=== PATIENT | male | born 1980 | race Caucasian/White ===

== ENCOUNTER 2017-01-18 21:22 | Emergency (ER) | payer OTHER ==
[~2017-01-18] VITALS: Ht 165.1 cm; Wt 65.0 kg
[2017-01-18 21:36] VITALS: BP 154/90; PULSE 92; RESP 16; TEMP 98.4; O2SAT 98
--- NOTE | 2017-01-18 21:59 | PD ---
HPI Chief Complaint: Psychiatric Symptoms Time Seen by Provider: 21:59 Travel History International Travel<30 days: No Contact w/Intl Traveler<30days: No Traveled to known affect area: No History of Present Illness HPI 37-year-old male presents to the emergency department under Mo[place] act for psychiatric evaluation. [facility] where he states that he informed them he had drank bleach today and taken a Tylenol PM. Patient states his is an active attempted suicide. He states that 2 nights ago he took about 20 Tylenol PM and attempted suicide. Patient states that he has no reason to live and he is actively suicidal. He denies any nausea or vomiting. No focal deficits weakness. No cough or chest congestion. No recent illnesses, fever, or chills. No other symptoms to report at this time. PFSH Past Medical History Anxiety: Yes Depression: Yes Medical other: Yes (heart murmur ) Tetanus Vaccination: > 5 Years Past Surgical History Surgical History: No Previous Surgery Social History Alcohol Use: Yes Tobacco Use: Yes Substance Use: Yes (mj, cocaine, heroin, crack, crystal meth ) Allergies-Medications (Allergen,Severity, Reaction): Coded Allergies: No Known Allergies (Unverified , 01/18/17) Reported Meds & Prescriptions Reported Meds & Active Scripts Active No Active Prescriptions or Reported Medications Review of Systems Except as stated in HPI: all other systems reviewed are Neg Physical Exam Narrative GENERAL: Well-nourished, well-developed male patient, ambulatory and in no acute distress SKIN: Focused skin assessment warm/dry. HEAD: Normocephalic. EYES: No scleral icterus. No injection or drainage. NECK: Supple, trachea midline. No JVD or lymphadenopathy. CARDIOVASCULAR: Regular rate and rhythm without murmurs, gallops, or rubs. RESPIRATORY: Breath sounds equal bilaterally. No accessory muscle use. GASTROINTESTINAL: Abdomen soft, non-tender, nondistended. MUSCULOSKELETAL: No cyanosis, or edema. BACK: Nontender without obvious deformity. No CVA tenderness. PSYCHIATRIC: Depressed affect. No hallucinations. Data Data Last Documented VS Vital Signs Date Time Temp Pulse Resp B/P Pulse Ox O2 Delivery O2 Flow Rate FiO2 01/19/17 02:05 91 18 122/68 01/18/17 21:36 98.4 98 Orders Complete Blood Count With Diff (01/18/17 21:57) Comprehensive Metabolic Panel (01/18/17 21:57) Urinalysis - C+S If Indicated (01/18/17 21:57) Electrocardiogram (01/18/17 21:57) Psych Screen (01/18/17 21:57) Drug Screen, Random Urine (01/18/17 21:57) Alcohol (Ethanol) (01/18/17 21:57) Salicylates (Aspirin) (01/18/17 21:57) Tylenol (Acetaminophen) (01/18/17 21:57) Diet Regular Basic (01/19/17 Breakfast) Labs Laboratory Tests Test 01/18/17 01/18/17 22:15 23:30 White Blood Count 7.2 TH/MM3 Red Blood Count 5.09 MIL/MM3 Hemoglobin 16.4 GM/DL Hematocrit 48.0 % Mean Corpuscular Volume 94.4 FL Mean Corpuscular Hemoglobin 32.2 PG Mean Corpuscular Hemoglobin 34.1 % Concent Red Cell Distribution Width 12.4 % Platelet Count 147 TH/MM3 Mean Platelet Volume 8.4 FL Neutrophils (%) (Auto) 51.6 % Lymphocytes (%) (Auto) 36.1 % Monocytes (%) (Auto) 8.5 % Eosinophils (%) (Auto) 2.9 % Basophils (%) (Auto) 0.9 % Neutrophils # (Auto) 3.7 TH/MM3 Lymphocytes # (Auto) 2.6 TH/MM3 Monocytes # (Auto) 0.6 TH/MM3 Eosinophils # (Auto) 0.2 TH/MM3 Basophils # (Auto) 0.1 TH/MM3 CBC Comment DIFF FINAL Differential Comment Sodium Level 141 MEQ/L Potassium Level 3.9 MEQ/L Chloride Level 105 MEQ/L Carbon Dioxide Level 29.5 MEQ/L Anion Gap 7 MEQ/L Blood Urea Nitrogen 5 MG/DL Creatinine 0.85 MG/DL Estimat Glomerular Filtration 101 ML/MIN Rate Random Glucose 83 MG/DL Calcium Level 8.8 MG/DL Total Bilirubin 0.4 MG/DL Aspartate Amino Transf 37 U/L (AST/SGOT) Alanine Aminotransferase 26 U/L (ALT/SGPT) Alkaline Phosphatase 92 U/L Total Protein 7.4 GM/DL Albumin 3.8 GM/DL Salicylates Level 5.0 MG/DL Acetaminophen Level LESS THAN 2.0 MCG/ML Ethyl Alcohol Level 176 MG/DL Urine Color YELLOW Urine Turbidity CLEAR Urine pH 5.5 Urine Specific [place] 1.026 Urine Protein TRACE mg/dL Urine Glucose (UA) NEG mg/dL Urine Ketones NEG mg/dL Urine Occult Blood NEG Urine Nitrite NEG Urine Bilirubin NEG Urine Urobilinogen LESS THAN 2.0 MG/DL Urine Leukocyte Esterase NEG Urine RBC LESS THAN 1 /hpf Urine WBC 3 /hpf Urine Hyaline Casts 4 /lpf Urine Granular Casts 5 /lpf Urine Mucus FEW /lpf Microscopic Urinalysis Comment CULT NOT INDICATED Urine Opiates Screen NEG Urine Barbiturates Screen NEG Urine Amphetamines Screen NEG Urine Benzodiazepines Screen NEG Urine Cocaine Screen NEG Urine Cannabinoids Screen NEG MDM Medical Decision Making Medical Screen Exam Complete: Yes Emergency Medical Condition: Yes Medical Record Reviewed: Yes Differential Diagnosis Mood disorder versus personality disorder versus adjustment reaction disorder versus substance abuse Narrative Course 37-year-old male presents to emergency department under [place] act for psychiatric evaluation. Patient appears without distress. Poison control has been contacted by nursing staff regarding the patient drinking bleach. EKG and lab work is ordered in accordance to the recommendation. CBC and CMP are without acute concern. Toxicology is negative. Salicylates is 5.0. Abrasion Tylenol within normal limits. EtOH is 176. Patient is medically cleared to undergo psychiatric screening for further evaluation and disposition. Mental health screening discussed with the patient. Psychiatric screen ordered. Diagnosis Primary Impression: Suicidal intent Additional Impressions: Suicidal thoughts Alcohol intoxication Qualified Code: F10.929 - Alcohol intoxication, with unspecified complication Scripts No Active Prescriptions or Reported Meds Condition: Marielos Scott January 18, 2017 21:59
[2017-01-18 22:28] LABS: AUTOMATED NEUTROPHIL # 3.7 TH/MM3 (1.8-7.7); BASOPHIL # 0.1 TH/MM3 (0-0.2); BASOPHIL % 0.9 % (0.0-2.0); EOSINOPHIL # 0.2 TH/MM3 (0-0.4); EOSINOPHIL % 2.9 % (0.0-4.0); HEMO FLAGS DIFF FINAL; LYMPH % 36.1 % (9.0-44.0); LYMPHOCYTE # 2.6 TH/MM3 (1.0-4.8); MEAN CELL VOLUME 94.4 FL (80.0-100.0); MEAN CORPUSCULAR HEMOGLOBIN 32.2 PG (27.0-34.0); MEAN CORPUSCULAR HGB CONC 34.1 % (32.0-36.0); MONO % 8.5 % (0.0-8.0); NEUT % 51.6 % (16.0-70.0); PLATELET COUNT 147 TH/MM3 (150-450); RED BLOOD COUNT 5.09 MIL/MM3 (4.50-5.90); RED CELL DISTRIBUTION WIDTH 12.4 % (11.6-17.2); WHITE BLOOD COUNT 7.2 TH/MM3 (4.0-11.0)
[2017-01-18 22:58] LABS: ALT (GPT) 26 U/L (12-78); ANION GAP 7 MEQ/L (5-15); AST (GOT) 37 U/L (15-37); BICARBONATE 29.5 MEQ/L (21.0-32.0); BLOOD UREA NITROGEN 5 MG/DL (7-18); CHLORIDE 105 MEQ/L (98-107); GLOMERULAR FILTRATION RATE 101 ML/MIN (>89); POTASSIUM 3.9 MEQ/L (3.5-5.1); SODIUM (NA) 141 MEQ/L (136-145)
[2017-01-18 23:00] LABS: ACETAMINOPHEN LESS THAN 2.0 MCG/ML (10.0-30.0); ALKALINE PHOSPHATASE 92 U/L (45-117); TOTAL BILIRUBIN ADULT 0.4 MG/DL (0.2-1.0)
[2017-01-19 00:13] LABS: BLOOD, URINE NEG (NEG); COMMENT (UR) CULT NOT INDICATED; CULTURE IF INDICATED CULT NOT INDICATED; GLUCOSE,URINE NEG (NEG); GRANULAR CAST, URINE 5 /lpf; HYALINE CAST, URINE 4 /lpf (RARE); KETONE, URINE NEG (NEG); MUCUS URINE FEW /lpf (OCC); NITRITE,URINE NEG (NEG); PH, URINE 5.5 (5.0-8.5); URINE COLOR YELLOW (YELLW/STRAW)
[2017-01-19 00:14] LABS: AMPHETAMINE, URINE NEG (NEG); BARBITURATES, URINE NEG (NEG); COCAINE, URINE NEG (NEG)
[2017-01-19 02:05] VITALS: BP 122/68; PULSE 91; RESP 18
[2017-01-19 05:57] VITALS: BP 156/95; PULSE 84; RESP 18; O2SAT 98
--- NOTE | 2017-01-19 11:09 | PD ---
History of Present Illness Chief Complaint: Psychiatric Symptoms Time Seen by Provider: 10:45 Travel History International Travel<30 Days: No Contact w/Intl Traveler<30days: No Known affected area: No Legal Status Legal Status: Mooney Act Mo[place] Act Signed By: Ainsley Begum History of Present Illness: History of Present Illness HPI 37-year-old male with history of alcohol dependence who presents to the emergency department under Mooney act by JEANIE for psychiatric evaluation. As per the BA report the patient consumed bleach and an unknown pill and then left his house. He then called the police an informed them that he had done so. His found a note that he had left for her stating " I don't want to live anymore. It's not worth it". He also alleges that 2 days prior he had taken 20 Tylenol PM as an attempted suicide. His BAL on arrival to ED was 176 Patient was medically cleared in ed and then he was monitored in J pod. He did not present any behavioral concerns and no suicidality. he slept well. This morning he is alert,oriented, calm and cooperative. Speech is clear and logical, coherent. There is no hallucinations, no delusions and he denies any paranoia. The patient is clinically sober with no tremors and ambulating well. He states that he was living in [place] up until a week ago when he moved in with his ex as he had no other place to go. Most recently they have been arguing over his drinking. He states ' i was upset with her and that precipitated his suicide gesture. At this time he denies suicidal or homicidal ideation, intent or plan. He wants to begin to work on his sobriety. PFSH Past Medical History Anxiety: Yes Depression: Yes Medical other: Yes (heart murmur ) Tetanus Vaccination: > 5 Years Past Surgical History Surgical History: No Previous Surgery Psychiatric History Psychiatric History Hx Psychiatric Treatment: Has been treated x 1 for depression History of Inpatient Treatment: Yes ([facility] x3 days.) Guns or firearms in home: No Social History Divorce male who is living with his ex and their 2 children. works as a information systems security specialist. Hx Alcohol Use: Yes Hx Tobacco Use: Yes Hx Substance Use: Yes ( hx: mj, cocaine, heroin, crack, crystal meth, alcohol) Substance Use Type: Alcohol, Crack, Amphetamines-Stimulants, Heroin, Cocaine Hx of Substance Use Treatment: Yes ([facility] x 7 years. ) Family Psychiatric History None reported Allergies-Medications (Allergen,Severity, Reaction): Coded Allergies: No Known Allergies (Unverified , 01/18/17) Reported Meds & Prescriptions Reported Meds & Active Scripts Active No Active Prescriptions or Reported Medications Review of Systems Except as stated in HPI: all other systems reviewed are Neg Exam Alert: Yes [place]: Person (ox4) Mood: Calm Affect: Appropriate, Tearful Speech: Clear, Logical Eye Contact: Normal Memory Intact: Comment (no impairmetn) Hallucinations: Olfactory, Other (negative) Delusions: No Suicidal: Ideation (Negative) Homicidal: Ideation (Negative) Insight/Judgement poor. Not impaired. MDM Medical Decision Making Medical Record Reviewed: Yes Assessment/Plan 37 year old male with history of substance abuse who in context of alcohol intoxication as well as being involved in an argument with his ex allegedly took some bleach as well as took one unknown pill. Patient was monitored until he sobered up clinically and did not present any behavioral concerns or suicidality. At the time of this evaluation the patient denies suicidal ideation, intent or plan. he is talking about his sobriety and is future oriented with adequate protective factors. At this time the BA will be lifted. he will be discharged to follow up with AA as well as outpatient care. He has an appointmetn scheduled for January 30, 2017. Orders Complete Blood Count With Diff (01/18/17 21:57) Comprehensive Metabolic Panel (01/18/17 21:57) Urinalysis - C+S If Indicated (01/18/17 21:57) Electrocardiogram (01/18/17 21:57) Psych Screen (01/18/17 21:57) Drug Screen, Random Urine (01/18/17 21:57) Alcohol (Ethanol) (01/18/17 21:57) Salicylates (Aspirin) (01/18/17 21:57) Tylenol (Acetaminophen) (01/18/17 21:57) Diet Regular Basic (01/19/17 Breakfast) Results Vital Signs Date Time Temp Pulse Resp B/P Pulse Ox O2 Delivery O2 Flow Rate FiO2 01/19/17 05:57 84 18 156/95 98 Room Air 01/19/17 02:05 91 18 122/68 01/18/17 21:36 98.4 92 16 154/90 98 Laboratory Tests Test 01/18/17 01/18/17 22:15 23:30 White Blood Count 7.2 Red Blood Count 5.09 Hemoglobin 16.4 Hematocrit 48.0 Mean Corpuscular Volume 94.4 Mean Corpuscular Hemoglobin 32.2 Mean Corpuscular Hemoglobin 34.1 Concent Red Cell Distribution Width 12.4 Platelet Count 147 Mean Platelet Volume 8.4 Neutrophils (%) (Auto) 51.6 Lymphocytes (%) (Auto) 36.1 Monocytes (%) (Auto) 8.5 Eosinophils (%) (Auto) 2.9 Basophils (%) (Auto) 0.9 Neutrophils # (Auto) 3.7 Lymphocytes # (Auto) 2.6 Monocytes # (Auto) 0.6 Eosinophils # (Auto) 0.2 Basophils # (Auto) 0.1 CBC Comment DIFF FINAL Differential Comment Sodium Level 141 Potassium Level 3.9 Chloride Level 105 Carbon Dioxide Level 29.5 Anion Gap 7 Blood Urea Nitrogen 5 Creatinine 0.85 Estimat Glomerular Filtration 101 Rate Random Glucose 83 Calcium Level 8.8 Total Bilirubin 0.4 Aspartate Amino Transf 37 (AST/SGOT) Alanine Aminotransferase 26 (ALT/SGPT) Alkaline Phosphatase 92 Total Protein 7.4 Albumin 3.8 Salicylates Level 5.0 Acetaminophen Level LESS THAN 2.0 Ethyl Alcohol Level 176 Urine Color YELLOW Urine Turbidity CLEAR Urine pH 5.5 Urine Specific [place] 1.026 Urine Protein TRACE Urine Glucose (UA) NEG Urine Ketones NEG Urine Occult Blood NEG Urine Nitrite NEG Urine Bilirubin NEG Urine Urobilinogen LESS THAN 2.0 Urine Leukocyte Esterase NEG Urine RBC LESS THAN 1 Urine WBC 3 Urine Hyaline Casts 4 Urine Granular Casts 5 Urine Mucus FEW Microscopic Urinalysis Comment CULT NOT INDICATED Urine Opiates Screen NEG Urine Barbiturates Screen NEG Urine Amphetamines Screen NEG Urine Benzodiazepines Screen NEG Urine Cocaine Screen NEG Urine Cannabinoids Screen NEG Diagnosis Primary Impression: Alcohol intoxication Additional Impressions: Substance induced mood disorder Substance abuse Ruled Out: Suicidal intent, Suicidal thoughts Psychiatrically Cleared: Yes Med/ Other Pt Specific Info: No Meds Exist/No RX given Prescriptions No Active Prescriptions or Reported Meds Disposition: 01 DISCHARGE HOME Condition: Stable Problem Qualifiers Primary Impression: Alcohol intoxication Qualified Code: F10.929 - Alcohol intoxication, with unspecified complication Carmen Arizmendi January 19, 2017 11:09
--- NOTE | 2017-01-19 11:15 | EKG ---
Date Performed: 01/18/2017 Time Performed: 23:28:20 PTAGE: 37 years EKG: Sinus rhythm WITH SINUS ARRHYTHMIA NORMAL ECG NO PREVIOUS TRACING DOCTOR: Jose Broussard Interpretating Date/Time 01/19/2017 11:13:16
== END 2017-01-19 12:03 | disposition home or self-care (01) ==
LOC: NEPD 21:22 → NEPJ 01-19 12:03
DX: F41.8 Other specified anxiety disorders (principal); F19.94 Other psychoactive substance use, unspecified with psychoactive substance-induced mood disorder; F10.129 Alcohol abuse with intoxication, unspecified; R01.1 Cardiac murmur, unspecified; Z72.0 Tobacco use; F12.90 Cannabis use, unspecified, uncomplicated; F14.90 Cocaine use, unspecified, uncomplicated; F15.90 Other stimulant use, unspecified, uncomplicated; R45.851 Suicidal ideations; Y90.6 Blood alcohol level of 120-199 mg/100 ml; Z72.89 Other problems related to lifestyle
CPT/HCPCS: 80053; 80307; 81001; 85025; 93005; 99283

== ENCOUNTER 2017-09-18 00:25 | Inpatient (IN) | payer MEDICAID, OTHER ==
[~2017-09-18] VITALS: Ht 167.6 cm; Wt 69.9 kg
[2017-09-18 01:10] VITALS: BP 116/70; PULSE 82; RESP 18; TEMP 96.8; O2SAT 97
[2017-09-18] MEDS ORDERED: ALUMINUM/MAGNESIUM/SIMETH 30 ML CUP PO PRN (02:15)
[2017-09-18] MEDS ORDERED: BENZTROPINE MESYLATE 1 MG TAB PO PRN (02:15)
[2017-09-18] MEDS ORDERED: MAGNESIUM HYDROXIDE SUSP 30 ML CUP PO PRN (02:15)
[2017-09-18] MEDS ORDERED: BENZTROPINE MESYLATE 2 MG/2 ML VIAL IM PRN (02:15)
[2017-09-18] MEDS ORDERED: traZODone HCL 50 MG TAB PO PRN (02:15)
[2017-09-18] MEDS ORDERED: FLUMAZENIL 0.5 MG/5 ML VIAL IV PUSH PRN (03:00)
[2017-09-18] MEDS ORDERED: HALOPERIDOL LACTATE 5 MG/ML AMP IM PRN (03:00)
[2017-09-18] MEDS ORDERED: LORazepam 2 MG TAB PO PRN (03:00)
[2017-09-18] MEDS ORDERED: LORazepam 2 MG/ML VIAL IV PUSH PRN ×4 (03:00)
[2017-09-18] MEDS ORDERED: NICOTINE 21 MG/24 HR PATCH T-DERMAL SCH (09:00)
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
[2017-09-18] MEDS: FOLIC ACID 1 MG TAB PO SCH (10:50)
[2017-09-18] MEDS: THIAMINE HCL 100 MG TAB PO SCH (10:50)
[2017-09-18 12:59] LABS: BICARBONATE 29.3 MEQ/L (21.0-32.0); BLOOD UREA NITROGEN 15 MG/DL (7-18); CALCIUM 9.4 MG/DL (8.5-10.1); CHLORIDE 102 MEQ/L (98-107); CREATININE 0.95 MG/DL (0.60-1.30); GLOMERULAR FILTRATION RATE 89 ML/MIN (>89); GLUCOSE,RANDOM 168 MG/DL (74-106); SODIUM (NA) 137 MEQ/L (136-145)
[2017-09-18 13:01] LABS: CHOLESTEROL 172 MG/DL (120-200); TRIGLYCERIDES 158 MG/DL (42-150)
[2017-09-18 13:10] LABS: CHOLESTEROL/ HDL RATIO 2.12 RATIO; HDL CHOLESTEROL 80.9 MG/DL (40.0-60.0); LDL CHOLESTEROL 60 MG/DL (0-99)
[2017-09-18] MEDS: NICOTINE 21 MG/24 HR PATCH T-DERMAL PRN (16:05)
[2017-09-18] MEDS: LURASIDONE 40 MG TAB PO SCH (17:10)
[2017-09-18 17:32] LABS: HEMOGLOBIN A1C 5.2 % (4.3-6.0)
[2017-09-18 18:14] VITALS: BP 115/59; PULSE 77; RESP 18; TEMP 98.5; O2SAT 96
[2017-09-18] MEDS: REMOVE OLD NICOTINE PATCH T-DERMAL SCH (21:00)
[2017-09-18] MEDS: LITHIUM CARBONATE 300 MG CAP PO SCH (21:37)
[2017-09-18] MEDS: diphenhydrAMINE HCL 50 MG CAP - HS PRN PO (21:38)
[2017-09-18] MEDS: hydrOXYzine HCL 50 MG TAB PO PRN (22:41)
[2017-09-19 05:41] VITALS: BP 113/63; PULSE 79; RESP 16; TEMP 97.9; O2SAT 97
[2017-09-19 06:01] VITALS: BP 148/84; PULSE 125; RESP 16; TEMP 97.1; O2SAT 94
[2017-09-19] MEDS: FOLIC ACID 1 MG TAB PO SCH (08:12)
[2017-09-19] MEDS: LITHIUM CARBONATE 300 MG CAP PO SCH ×2 (08:12→21:34)
[2017-09-19] MEDS: THIAMINE HCL 100 MG TAB PO SCH (08:12)
[2017-09-19] MEDS: NICOTINE 21 MG/24 HR PATCH T-DERMAL PRN (11:48)
[2017-09-19] MEDS: hydrOXYzine HCL 50 MG TAB PO PRN ×2 (12:41→19:29)
[2017-09-19] MEDS: LORazepam 1 MG TAB PO PRN ×3 (12:56→22:01)
--- NOTE | 2017-09-19 14:43 | HHI.PYPN ---
Subjective Chief Complaint: Depression, suicide attempt Remarks Patient was seen and case discussed with nursing. Today patient is perseverant on the insomnia. Earlier today per nursing, was anxious, crying. During this interview he is hesitant with an irritable affect. Describes his mood today is "angry, down." Denies any suicidal homicidal ideation intent or plan. Mental Status Examination Appearance: Disheveled Consciousness: Alert Orientation: x4 Motor Activity: Normal gait Speech: Slow Language: Adequate Fund of Knowledge: Adequate Attention and Concentration: Adequate Memory: Unremarkable Mood: Angry Affect: Other (restricted and tearful) Thought Process & Associations: Intact, Linear Thought Content: Appropriate Hallucination Type: None Delusion Type: None Suicidal Ideation: No Suicidal Plan: No Suicidal Intention: No Homicidal Ideation: No Homicidal Plan: No Homicidal Intention: No Insight: Fair Judgment: Impulsive Results Vitals/IOs Vital Signs Date Time Temp Pulse Resp B/P (MAP) Pulse Ox O2 Delivery O2 Flow Rate FiO2 09/19/17 06:01 97.1 16 () 94 Assessment & Plan Problem List: (1) Severe depressed bipolar II disorder without psychotic features ICD Codes: F31.81 - Bipolar II disorder (2) Polysubstance abuse ICD Codes: F19.10 - Other psychoactive substance abuse, uncomplicated Assessment & Plan Start trazodone 50 mg by mouth daily at bedtime Justification for Cont. Inpt. Patient would decompensate in a less restrictive setting Request HC Surrog/Guard Advoc?: No Isauro Deleon DO Sep 19, 2017 14:43
[2017-09-19 16:18] VITALS: BP 118/63; PULSE 79; RESP 17; TEMP 97.8; O2SAT 99
[2017-09-19] MEDS: LURASIDONE 40 MG TAB PO SCH (17:19)
[2017-09-19] MEDS: REMOVE OLD NICOTINE PATCH T-DERMAL SCH (21:00)
[2017-09-19] MEDS: diphenhydrAMINE HCL 50 MG CAP - HS PRN PO (21:33)
[2017-09-19] MEDS: traZODone HCL 50 MG TAB PO SCH (21:34)
[2017-09-20 05:11] VITALS: BP 112/58; PULSE 60; RESP 16; TEMP 98; O2SAT 99
[2017-09-20] MEDS: THIAMINE HCL 100 MG TAB PO SCH (08:02)
[2017-09-20] MEDS: LITHIUM CARBONATE 300 MG CAP PO SCH ×2 (08:02→21:32)
[2017-09-20] MEDS: FOLIC ACID 1 MG TAB PO SCH (08:02)
[2017-09-20] MEDS: LORazepam 1 MG TAB PO PRN ×3 (08:02→19:58)
--- NOTE | 2017-09-20 13:09 | HHI.PYPN ---
Subjective Chief Complaint: Depression, suicide attempt Remarks Patient was seen and case discussed with nursing. Per nursing, CIWA is 8. There are mild tremors and anxiety. No nausea or vomiting or headache or confusion or hallucinations. Patient is largely seclusive to room. Is guarded and minimally engaged during the interview. Mood continues to be labile and he says he is "sad crying during the day thinking about his kids. He denies suicidal or homicidal ideation intent or plan. Compliant with medications Mental Status Examination Appearance: Disheveled Consciousness: Alert Orientation: x4 Motor Activity: Normal gait Speech: Slow Language: Adequate Fund of Knowledge: Adequate Attention and Concentration: Adequate Memory: Unremarkable Mood: Sad, Irritable Affect: Labile Thought Process & Associations: Intact, Linear Thought Content: Appropriate Hallucination Type: None Delusion Type: None Suicidal Ideation: No Suicidal Plan: No Suicidal Intention: No Homicidal Ideation: No Homicidal Plan: No Homicidal Intention: No Insight: Fair Judgment: Impulsive Results Vitals/IOs Vital Signs Date Time Temp Pulse Resp B/P (MAP) Pulse Ox O2 Delivery O2 Flow Rate FiO2 09/20/17 05:11 98.0 60 16 112/58 (76) 99 Assessment & Plan Problem List: (1) Severe depressed bipolar II disorder without psychotic features ICD Codes: F31.81 - Bipolar II disorder (2) Polysubstance abuse ICD Codes: F19.10 - Other psychoactive substance abuse, uncomplicated Assessment & Plan Continue current treatment plan Justification for Cont. Inpt. Patient will decompensate in a less restrictive setting Request HC Surrog/Guard Advoc?: No Isauro Deleon DO Sep 20, 2017 13:09
[2017-09-20] MEDS: NICOTINE 21 MG/24 HR PATCH T-DERMAL PRN (14:57)
[2017-09-20] MEDS: hydrOXYzine HCL 50 MG TAB PO PRN (14:57)
[2017-09-20 15:58] VITALS: BP 122/65; PULSE 86; RESP 18; TEMP 97.7; O2SAT 99
[2017-09-20] MEDS: LURASIDONE 40 MG TAB PO SCH (17:59)
[2017-09-20 18:53] VITALS: BP 144/77; PULSE 115; RESP 16; TEMP 98.5; O2SAT 97
[2017-09-20] MEDS: ACETAMINOPHEN 325 MG TAB PO PRN (19:01)
--- NOTE | 2017-09-20 20:39 | RADRPT ---
EXAM DATE/TIME: 09/20/2017 20:30 [place] COMPARISON: No previous studies available for comparison. INDICATIONS : Right hand pain post fall, Complains of bruising and swelling. MEDICAL HISTORY : None. SURGICAL HISTORY : None. ENCOUNTER: Initial ACUITY: 1 day PAIN SCORE: 9/10 LOCATION: Right upper extremity FINDINGS: Three view examination of the right hand demonstrates soft tissue swelling along the dorsum of the romero nd. Bony structures are intact without evidence of fracture or dislocation. There is no significant a rthropathy. The carpal bones appear intact. The interphalangeal and metacarpophalangeal joints are i ntact. Bony mineralization is normal. CONCLUSION: Soft tissue swelling without evidence of acute fracture, dislocation or significant arthropathy. Giovanni Henderson MD on September 20, 2017 at 20:36 Board Certified Radiologist. This report was verified electronically.
[2017-09-20] MEDS: REMOVE OLD NICOTINE PATCH T-DERMAL SCH (21:00)
[2017-09-20] MEDS: traZODone HCL 50 MG TAB PO SCH (21:32)
[2017-09-21 06:27] VITALS: BP 110/64; PULSE 65; RESP 16; TEMP 98; O2SAT 98
[2017-09-21] MEDS: THIAMINE HCL 100 MG TAB PO SCH (08:32)
[2017-09-21] MEDS: LITHIUM CARBONATE 300 MG CAP PO SCH ×2 (08:32→20:41)
[2017-09-21] MEDS: FOLIC ACID 1 MG TAB PO SCH (08:32)
[2017-09-21] MEDS: LORazepam 1 MG TAB PO PRN (12:21)
[2017-09-21] MEDS: ACETAMINOPHEN 325 MG TAB PO PRN (12:22)
--- NOTE | 2017-09-21 13:46 | HHI.PYPN ---
Subjective Chief Complaint: Depression, suicide attempt Remarks Patient seen and examined with nurse. Chart reviewed. Case discussed with nursing staff. Per nursing staff, the patient punched a wall over the weekend and try to pass this off as an unwitnessed fall. X-ray of the hand was negative for fracture. On my examination today, patient continues to display dysphoric affect. He reports ongoing low mood and high anxiety. He admits to ongoing intermittent suicidal ideation without specific plan. He endorses negative self talk. He admits that the injury to his right hand was the result of intentional nonsuicidal self injury by punching a wall; he did not fall. He complains of poor sleep. He says that he has done better with Seroquel in the past as this helped with sleep. We discussed discontinuing Latuda and initiating Seroquel at night and possibly adding additional doses during the day for management of anxiety. After discussion of the risks and benefits, the patient is agreeable to making this medication change. We also discuss transitioning the patient back to the higher acuity unit given the ongoing suicidal ideation and self injury over the weekend, and the patient agrees that this is not unreasonable, although he does not describe any active urge to suicide on the inpatient unit. Denies side effects from medications. Besides some lingering pain in the affected hand, no physical complaints. Patient has no signs or symptoms of GABAergic withdrawal presently and, when asked, admits that he was using the Ativan per LAYAWA when offered for management of his anxiety and not for withdrawal. Review of Systems Except as stated in HPI: all other systems reviewed are Neg Mental Status Examination Appearance: Appropriate Consciousness: Alert Orientation: x4 Motor Activity: Normal gait, Other (No motor abnormalities noted.) Speech: Slow Language: Adequate Fund of Knowledge: Adequate Attention and Concentration: Adequate Memory: Unremarkable Mood: Sad Affect: Other (tearful and dysphoric) Thought Process & Associations: Intact, Logical, Linear Thought Content: Appropriate Hallucination Type: None Delusion Type: None Suicidal Ideation: No Suicidal Plan: No Suicidal Intention: No Homicidal Ideation: No Homicidal Plan: No Homicidal Intention: No Insight: Fair Judgment: Impulsive Mental Status Exam Remarks Patient has erythema and swelling over the dorsum of his right hand. X-ray was negative for fracture. Results Labs Labs reviewed. No new labs. Last Impressions Hand X-Ray 09/20/17 0000 Signed Impressions: Service Date/Time: Wednesday, September 20, 2017 20:30 - CONCLUSION: Soft tissue swelling without evidence of acute fracture, dislocation or significant arthropathy. Giovanni Henderson MD Vitals/IOs Vital Signs Date Time Temp Pulse Resp B/P (MAP) Pulse Ox O2 Delivery O2 Flow Rate FiO2 09/21/17 06:27 98.0 65 16 110/64 (79) 98 Intake and Output 09/21/17 09/21/17 09/22/17 08:00 16:00 00:00 Intake Total 240 ml 240 ml Balance 240 ml 240 ml Assessment & Plan Problem List: (1) Severe depressed bipolar II disorder without psychotic features ICD Codes: F31.81 - Bipolar II disorder (2) Polysubstance abuse ICD Codes: F19.10 - Other psychoactive substance abuse, uncomplicated Assessment & Plan Discontinue Latuda and initiate Seroquel 100 mg at bedtime. We will plan to titrate this agent to effect an as tolerated. Continue lithium as ordered for now with plans to obtain a lithium level and a BMP in the morning and adjust the dose based on the level to bring it within the therapeutic range. Discontinue CIWA scale and associated Ativan. Continue Atarax as needed for anxiety. We could consider adding daytime doses of Seroquel if efficacious for management of anxiety. Transfer back to high acuity unit from the lower acuity unit given self injury over the weekend and ongoing intermittent suicidal ideation. Continue other medications and care as ordered. Justification for Cont. Inpt. Concern for impairment in safety. Medication changes. High risk for decompensation in less restrictive environment Discharge Planning Pending psychiatric stabilization Request HC Surrog/Guard Advoc?: No Eduar Collins MD Sep 21, 2017 13:46
[2017-09-21] MEDS: hydrOXYzine HCL 50 MG TAB PO PRN ×2 (15:33→21:44)
[2017-09-21] MEDS: traZODone HCL 50 MG TAB PO SCH (20:40)
[2017-09-21] MEDS: REMOVE OLD NICOTINE PATCH T-DERMAL SCH (21:00)
[2017-09-21] MEDS ORDERED: QUEtiapine FUMARATE 100 MG TAB PO SCH (21:00)
[2017-09-21] MEDS: diphenhydrAMINE HCL 50 MG CAP - HS PRN PO (21:44)
[2017-09-22 06:21] VITALS: BP 104/59; PULSE 77; RESP 18; TEMP 97.5; O2SAT 100
[2017-09-22 06:25] VITALS: BP 104/59; PULSE 77; RESP 18; TEMP 97.5; O2SAT 100
[2017-09-22 06:30] LABS: BICARBONATE 28.7 MEQ/L (21.0-32.0); CALCIUM 9.4 MG/DL (8.5-10.1); CREATININE 0.81 MG/DL (0.60-1.30)
[2017-09-22] MEDS: LITHIUM CARBONATE 300 MG CAP PO SCH ×2 (08:44→20:36)
[2017-09-22] MEDS: THIAMINE HCL 100 MG TAB PO SCH (08:44)
[2017-09-22] MEDS: FOLIC ACID 1 MG TAB PO SCH (08:44)
[2017-09-22] MEDS: NICOTINE 21 MG/24 HR PATCH T-DERMAL PRN (09:56)
[2017-09-22] MEDS ORDERED: QUEtiapine FUMARATE 100 MG TAB PO PRN (12:00)
[2017-09-22] MEDS: QUEtiapine FUMARATE 25 MG TAB PO SCH (12:44)
[2017-09-22] MEDS ORDERED: OLANZapine IM 10 MG VIAL IM STA (13:41)
--- NOTE | 2017-09-22 15:29 | HHI.PYPN ---
Subjective Chief Complaint: Depression, suicide attempt Remarks Patient seen and examined with nurse. Chart reviewed. Case discussed with nursing staff. Case discussed in treatment team with counselor and occupational therapist. On my exam, patient remains dysphoric. He denies SI/ HI and denies urge presently to self-injure (but see below). He expresses displeasure with having to remain on high acuity unit but seems to understand the rationale for this decision, and we discuss transitioning patient back to lower acuity unit if he is able to remain in behavioral control overnight. He complains of poor sleep as well as high anxiety, and we discuss utilizing Seroquel to try to ameliorate both of these issues. Denies side effects from medications. No physical complaints. Patient completed ROR yesterday but agrees to rescind it today and continue voluntary treatment. I have checked with legal specialist and confirmed that ROR has been rescinded by patient. I was called by RN around midday to report that patient became angry and punched a wall because he did not receive the maltese fries he ordered on his lunch tray. He could not be verbally de-escalated per nursing staff, and I have ordered him medicated with Zyprexa 10mg IM ETO. I have also ordered another x-ray of the hand. He remains on close obs. Review of Systems Except as stated in HPI: all other systems reviewed are Neg Mental Status Examination Appearance: Appropriate Consciousness: Alert Orientation: x4 Motor Activity: Normal gait, Other (No abnormal motor movements noted.) Speech: Slow Language: Adequate Fund of Knowledge: Adequate Attention and Concentration: Adequate Memory: Unremarkable Mood: Sad Affect: Other (restricted) Thought Process & Associations: Intact, Logical, Linear Thought Content: Appropriate Hallucination Type: None Delusion Type: None Suicidal Ideation: No Suicidal Plan: No Suicidal Intention: No Homicidal Ideation: No Homicidal Plan: No Homicidal Intention: No Insight: Fair Judgment: Impulsive Results Labs Test 09/22/17 05:45 Blood Urea Nitrogen 18 MG/DL Creatinine 0.81 MG/DL Random Glucose 89 MG/DL Calcium Level 9.4 MG/DL Sodium Level 139 MEQ/L Potassium Level 3.8 MEQ/L Chloride Level 104 MEQ/L Carbon Dioxide Level 28.7 MEQ/L Anion Gap 6 MEQ/L Estimat Glomerular Filtration Rate 107 ML/MIN [place] Level 0.4 MEQ/L Labs reviewed. GFR wnl. Electrolytes unremarkable. [place] level 0.4, subtherapeutic. Vitals/IOs Vital Signs Date Time Temp Pulse Resp B/P (MAP) Pulse Ox O2 Delivery O2 Flow Rate FiO2 09/22/17 06:25 97.5 77 18 104/59 (74) 100 Assessment & Plan Problem List: (1) Severe depressed bipolar II disorder without psychotic features ICD Codes: F31.81 - Bipolar II disorder (2) Polysubstance abuse ICD Codes: F19.10 - Other psychoactive substance abuse, uncomplicated Assessment & Plan Titrate lithium to 300mg qAM and 600mg qHS for mood stabilization. Plan to check another level Thursday. Titrate Seroquel to 50mg qAM, 50mg q3pm, 200mg qHS for mood stabilization and anxiety. I have discussed that the latter use is off -label. I will provider an additional 100mg of Seroquel qHS PRN insomnia and discontinue the trazodone. Continue to monitor on high acuity unit. Low threshold for 1:1 if behavior remains disturbed. Follow up x-ray. OT consult. Continue other meds and care as ordered. Justification for Cont. Inpt. Medication changes. Impairment in safety. High risk for decompensation in less restrictive environment. Discharge Planning Pending psychiatric stabilization. Request HC Surrog/Guard Advoc?: No Eduar Collins MD Sep 22, 2017 15:29
--- NOTE | 2017-09-22 17:27 | RADRPT ---
EXAM DATE/TIME: 09/22/2017 17:04 [facility] COMPARISON: No previous studies available for comparison. INDICATIONS : Hit hand against wall today. Pain through second digit. MEDICAL HISTORY : None. SURGICAL HISTORY : None. ENCOUNTER: Initial ACUITY: 1 day PAIN SCORE: 4/10 LOCATION: Right Hand FINDINGS: A limited two-view examination of the right hand was obtained and not a standard 3 view trauma series limiting the sensitivity. There is a tiny less than 1 mm ossific or calcific structure located along the radial base of the second proximal phalanx. The bony structures are otherwise intact in appearan ce. There is soft tissue swelling over the dorsum of the hand. CONCLUSION: 1. Questionable small avulsion type fracture off the base of the second proximal phalanx. 2. Soft tissue swelling over the dorsum of the hand. Dayo Cha MD on September 22, 2017 at 17:22 Board Certified Radiologist. This report was verified electronically.
[2017-09-22] MEDS: REMOVE OLD NICOTINE PATCH T-DERMAL SCH (20:36)
[2017-09-22] MEDS ORDERED: QUEtiapine FUMARATE 200 MG TAB PO SCH (21:00)
[2017-09-23 05:53] VITALS: BP 111/61; PULSE 77; RESP 18; TEMP 98; O2SAT 99
[2017-09-23] MEDS: QUEtiapine FUMARATE 25 MG TAB PO SCH (08:54)
[2017-09-23] MEDS: FOLIC ACID 1 MG TAB PO SCH (08:54)
[2017-09-23] MEDS: LITHIUM CARBONATE 300 MG CAP PO SCH ×2 (08:55→20:48)
[2017-09-23] MEDS: THIAMINE HCL 100 MG TAB PO SCH (08:55)
[2017-09-23] MEDS: hydrOXYzine HCL 50 MG TAB PO PRN ×3 (10:11→23:03)
--- NOTE | 2017-09-23 12:06 | HHI.PYPN ---
Subjective Chief Complaint: Depression, suicide attempt Remarks Patient seen and examined with counselor. Chart reviewed. I did note that the second x-ray of the right hand revealed possible phalangeal fracture and consulted hand surgery this morning. I did discuss the case briefly with Dr. Pham from hand surgery who said he would review the films and make recommendations from there. Case discussed with nurse and counselor. Nurse reports that the patient has poor frustration tolerance and is somewhat entitled and expects his wants to be met immediately. He apparently had a mild tantrum this morning because his breakfast arrived late. However, no further self-injury since punching wall yesterday in the midday. On my examination today, patient reports he slept better with Seroquel. He did require the additional p.r.n. dose of Seroquel and so received 300mg last night. Patient now complains of deprecatory AH and vague violent thoughts directed against ex- 's boyfriend, although he denies any HI towards this individual or anyone else. In context, it does seem as though the patient may be elaborating more psychiatric symptoms in an effort to extend his stay. No SI or urge to self injure at this time. He denies side effects from medications. Besides some pain in the right hand, no physical complaints. He would like to titrate both the daytime and nighttime dose of Seroquel. Review of Systems Except as stated in HPI: all other systems reviewed are Neg Mental Status Examination Appearance: Appropriate Consciousness: Alert Orientation: x4 Motor Activity: Other (no motoric abnormalities noted) Speech: Unremarkable Language: Adequate Fund of Knowledge: Adequate Attention and Concentration: Adequate Memory: Unremarkable Mood: Other (mildly dysphoric) Affect: Other (more full and reactive today) Thought Process & Associations: Intact, Logical, Linear Thought Content: Appropriate Hallucination Type: Auditory (now reports deprecatory auditory hallucinations. He does not appear particularly internally stimulated) Delusion Type: None Suicidal Ideation: No Suicidal Plan: No Suicidal Intention: No Homicidal Ideation: No (denies HI but reports some violent thoughts towards ex- 's boyfriend.) Homicidal Plan: No Homicidal Intention: No Insight: Fair Judgment: Impulsive Mental Status Exam Remarks No signs of alcohol withdrawal on exam Results Labs Labs reviewed. Last Impressions Hand X-Ray 09/22/17 0000 Signed Impressions: Service Date/Time: Friday, September 22, 2017 17:04 - CONCLUSION: 1. Questionable small avulsion type fracture off the base of the second proximal phalanx. 2. Soft tissue swelling over the dorsum of the hand. Dayo Cha MD Vitals/IOs Vital Signs Date Time Temp Pulse Resp B/P (MAP) Pulse Ox O2 Delivery O2 Flow Rate FiO2 09/23/17 05:53 98.0 77 18 111/61 (78) 99 Assessment & Plan Problem List: (1) Severe depressed bipolar II disorder without psychotic features ICD Codes: F31.81 - Bipolar II disorder (2) Polysubstance abuse ICD Codes: F19.10 - Other psychoactive substance abuse, uncomplicated Assessment & Plan Titrate Seroquel to 100mg/100mg/300mg for mood stabilization and now reported AH. There is no delirium and there are no signs of withdrawal, and I do not suspect substance withdrawal is the cause of reported AH. Continue lithium 300mg/600mg as ordered with plans to check a lithium level Thursday morning. Follow-up hand surgery recommendations. Continue to monitor on the high acuity unit. Continue other medications and care as ordered. Justification for Cont. Inpt. Medication changes. Concern for impairment in safety. High risk for decompensation in less restrictive environment. Discharge Planning Pending psychiatric stabilization. Request HC Surrog/Guard Advoc?: No Eduar Collins MD Sep 23, 2017 12:06
[2017-09-23] MEDS ORDERED: NICOTINE 21 MG/24 HR PATCH T-DERMAL SCH (12:15)
[2017-09-23] MEDS: QUEtiapine FUMARATE 100 MG TAB PO SCH (12:43)
[2017-09-23] MEDS: NICOTINE 21 MG/24 HR PATCH T-DERMAL PRN (12:43)
--- NOTE | 2017-09-23 12:48 | PD.TTN ---
Patient Problems 1. Discharge planning 2. Medication compliance 3. Knowledge deficit 4. Lack of coping skills Progress Toward Goals Provider Present: Dr. Joy Collins Provider Input: 09/22- Pt appears tearful and depressed. Pt regiment has been adjusted to include switch from [place] to Seroquel and increase in [place]. Nurse(s) Present: Mayito Abdalla, RN Nurse(s) Input: 09/22- Pt appears anxious, depressed, medication compliant and no behavioral issue on unit. Psychiatric Counselors Present: PRECIOUS Munoz Psych Therapist Input: 09/22- Pt appears depressed, easily agitated at times, cooperative, appropriate and organized. He has been compliant with medication regiment. He was moved to 2700 due to hitting hand into a wall. He presents with limited coping and emotional regulation skills. Pt presents with fair insight into condition and need for care. He will be Group Spec/RT/OT/SALDAÑA Present: PIPER Nickerson Group Spec/RT/OT/SALDAÑA Input: 09/22- PIPER Nickerson Pt does not attend groups. Discharge Plan [facility], Homeless plan Pt will likely be a homeless discharge and will be set up with necessary services including outpatient follow up appointment. Documentation Scribe: PRECIOUS Munoz Jonathan LMHC Sep 23, 2017 12:48
[2017-09-23 16:54] VITALS: BP 115/72; PULSE 94; RESP 18; TEMP 98.4; O2SAT 98
[2017-09-23] MEDS: ACETAMINOPHEN 325 MG TAB PO PRN (17:12)
[2017-09-23] MEDS: REMOVE OLD NICOTINE PATCH T-DERMAL SCH (20:48)
[2017-09-23] MEDS ORDERED: QUEtiapine FUMARATE 300 MG TAB PO SCH (21:00)
[2017-09-23] MEDS: diphenhydrAMINE HCL 50 MG CAP - HS PRN PO (22:13)
--- NOTE | 2017-09-23 23:18 | MB ---
cc: SHIVA ROBIN MD DATE OF CONSULTATION: 09/23/2017 REASON FOR CONSULTATION: Right hand injury. HISTORY OF PRESENT ILLNESS: The patient is a 37-year-old right-hand dominant male admitted to the psych unit for depression and suicide attempt. The patient was complaining of pain involving the right hand. He had x-rays and was found to have proximal phalanx fracture and hand surgery was consulted. On further questioning the patient states he banged his hand out of anger on a hard object about [id number] days ago and noticed pain and swelling over the right hand. He reinjured his hand again yesterday. He complains of pain and swelling over the right hand. Denies any open wounds. Denies any tingling and numbness. PAST MEDICAL HISTORY, PAST SURGICAL HISTORY: Noted. MEDICATIONS: Reviewed in the chart. PHYSICAL EXAMINATION: The patient is alert, oriented x3. Examination of right upper extremity/hand reveals mild swelling over the dorsal aspect of the hand. Diffuse tenderness noted over the metacarpal shaft region. No tenderness noted over the MP joint region. The MP joint of the index, middle, ring and little fingers appears stable. Mild tenderness noted over the dorsal aspect of the wrist. Wrist flexion and extension is painless. The patient is able to make a full fist, the degrees of flexion at the MP joint is limited and painful. He has full extension of the fingers. He has intact sensation distally. X-RAYS: X-rays of the right hand done on two different dates shows small flake of avulsion-like fracture involving the radial aspect at the base of the proximal phalanx, index finger, MP joint. No evidence of fractures of the metacarpals or the carpal bones noted. ASSESSMENT: The patient is a 37 year-old male with contusion right hand. PLAN: I do not see any evidence of ligamentous injury of the index finger, MP joint. He does have flake of bone from the radial aspect at the base of the proximal phalanx index finger. He has no evidence of fractures of the metacarpals. Most likely the patient has contusion of the soft tissue. No active hand surgical management needed at the present time. He needs finger range of motion exercises. Hand surgery will follow up on a p.r.n. basis if there are worsening symptoms. MD LISA Rodas /5:56 PM /11:06 PM
[2017-09-24] MEDS: hydrOXYzine HCL 50 MG TAB PO PRN ×2 (04:50→22:04)
[2017-09-24] MEDS: ACETAMINOPHEN 325 MG TAB PO PRN ×2 (04:50→18:38)
[2017-09-24 06:07] VITALS: BP 100/65; PULSE 79; RESP 18; TEMP 97.7; O2SAT 98
[2017-09-24] MEDS ORDERED: REMOVE OLD PATCH T-DERMAL SCH (09:00)
[2017-09-24] MEDS: THIAMINE HCL 100 MG TAB PO SCH (09:00)
[2017-09-24] MEDS ORDERED: REMOVE OLD NICOTINE PATCH T-DERMAL SCH (09:00)
[2017-09-24] MEDS: LITHIUM CARBONATE 300 MG CAP PO SCH ×2 (09:00→20:21)
[2017-09-24] MEDS: FOLIC ACID 1 MG TAB PO SCH (09:00)
[2017-09-24] MEDS: QUEtiapine FUMARATE 100 MG TAB PO SCH ×2 (09:00→14:23)
--- NOTE | 2017-09-24 15:13 | HHI.PYPN ---
Subjective Chief Complaint: Depression, suicide attempt Remarks Patient seen in day room with nurse chucho, chart reviewed patient compliant medication. Use is somewhat sad demeanor, states she is not suicidal "right now ", complains of poor sleep last night requesting adjustment of his Seroquel. Is still showing some vagueness and ambiguity about relationship issues and if he is improving. Will increase at bedtime Seroquel to 400 mg at bedtime Review of Systems Except as stated in HPI: all other systems reviewed are Neg Mental Status Examination Appearance: Appropriate Consciousness: Alert Orientation: x4 Motor Activity: Other (no motoric abnormalities noted) Speech: Unremarkable Language: Adequate Fund of Knowledge: Adequate Attention and Concentration: Adequate Memory: Unremarkable Mood: Other (mildly dysphoric) Affect: Other (more full and reactive today) Thought Process & Associations: Intact, Logical, Linear Thought Content: Appropriate Hallucination Type: Auditory (now reports deprecatory auditory hallucinations. He does not appear particularly internally stimulated) Delusion Type: None Suicidal Ideation: No Suicidal Plan: No Suicidal Intention: No Homicidal Ideation: No (denies HI but reports some violent thoughts towards ex- 's boyfriend.) Homicidal Plan: No Homicidal Intention: No Insight: Fair Judgment: Impulsive Results Vitals/IOs Vital Signs Date Time Temp Pulse Resp B/P (MAP) Pulse Ox O2 Delivery O2 Flow Rate FiO2 09/24/17 06:07 97.7 79 18 100/65 (77) 98 Assessment & Plan Problem List: (1) Severe depressed bipolar II disorder without psychotic features ICD Codes: F31.81 - Bipolar II disorder (2) Polysubstance abuse ICD Codes: F19.10 - Other psychoactive substance abuse, uncomplicated Assessment & Plan Estimated LOS: days patient states he is still having difficulty sleeping he is vague about suicidality. Continues depressed. For now continue treatment Justification for Cont. Inpt. At this time patient will decompensate and placed in a lower level of care Discharge Planning To be determined perhaps back in his home Request HC Surrog/Guard Advoc?: No Gulshan Banda MD Sep 24, 2017 15:13
[2017-09-24 17:55] VITALS: BP 129/60; PULSE 73; RESP 18; TEMP 97.7; O2SAT 99
[2017-09-24] MEDS: REMOVE OLD NICOTINE PATCH T-DERMAL SCH (20:22)
[2017-09-24] MEDS ORDERED: QUEtiapine FUMARATE 200 MG TAB PO SCH (21:00)
[2017-09-25 05:48] VITALS: BP 106/65; PULSE 83; RESP 18; TEMP 98.1; O2SAT 97
[2017-09-25] MEDS: FOLIC ACID 1 MG TAB PO SCH (08:38)
[2017-09-25] MEDS: THIAMINE HCL 100 MG TAB PO SCH (08:39)
[2017-09-25] MEDS: LITHIUM CARBONATE 300 MG CAP PO SCH ×2 (08:39→21:00)
[2017-09-25] MEDS: QUEtiapine FUMARATE 100 MG TAB PO SCH ×2 (08:39→13:00)
[2017-09-25] MEDS: NICOTINE 21 MG/24 HR PATCH T-DERMAL PRN (08:41)
[2017-09-25] MEDS: ACETAMINOPHEN 325 MG TAB PO PRN (10:24)
[2017-09-25] MEDS: hydrOXYzine HCL 50 MG TAB PO PRN (13:04)
--- NOTE | 2017-09-25 16:03 | HHI.PYPN ---
Subjective Chief Complaint: Depression, suicide attempt Remarks Patient seen in [place] with nurse Gloria, chart reviewed, patient appears somewhat nervous and anxious complaining of severe anxiety with a somewhat manipulative entitled attitude. There does acknowledge being the attic and aware of my reluctance to offer benzodiazepines or other addictive substances. Will increase Seroquel to 100 mg 8 AM noon and 4 PM, increase at bedtime Seroquel to 400 mg Review of Systems Except as stated in HPI: all other systems reviewed are Neg Mental Status Examination Appearance: Appropriate Consciousness: Alert Orientation: x4 Motor Activity: Other (no motoric abnormalities noted) Speech: Unremarkable Language: Adequate Fund of Knowledge: Adequate Attention and Concentration: Adequate Memory: Unremarkable Mood: Other (mildly dysphoric) Affect: Other (more full and reactive today) Thought Process & Associations: Intact, Logical, Linear Thought Content: Appropriate Hallucination Type: Auditory (now reports deprecatory auditory hallucinations. He does not appear particularly internally stimulated) Delusion Type: None Suicidal Ideation: No Suicidal Plan: No Suicidal Intention: No Homicidal Ideation: No (denies HI but reports some violent thoughts towards ex- 's boyfriend.) Homicidal Plan: No Homicidal Intention: No Insight: Fair Judgment: Impulsive Results Labs Test 09/25/17 12:15 [place] Level 0.5 MEQ/L Vitals/IOs Vital Signs Date Time Temp Pulse Resp B/P (MAP) Pulse Ox O2 Delivery O2 Flow Rate FiO2 09/25/17 05:48 98.1 83 18 106/65 (79) 97 Assessment & Plan Problem List: (1) Severe depressed bipolar II disorder without psychotic features ICD Codes: F31.81 - Bipolar II disorder (2) Polysubstance abuse ICD Codes: F19.10 - Other psychoactive substance abuse, uncomplicated Assessment & Plan Estimated LOS: days patient continues somewhat depressed Joey anxious and nervous. Though he denies suicidality at this time. She medication adjustments above Justification for Cont. Inpt. At this time patient decompensated placed in a lower level of care Discharge Planning To be determined Request HC Surrog/Guard Advoc?: Gulshan Hickman MD Sep 25, 2017 16:03
[2017-09-25 17:13] VITALS: BP 110/69; PULSE 80; RESP 17; TEMP 98.4; O2SAT 97
[2017-09-25] MEDS: QUEtiapine FUMARATE 200 MG TAB PO SCH (21:00)
[2017-09-25] MEDS: QUEtiapine FUMARATE 300 MG TAB PO SCH (21:00)
[2017-09-25] MEDS: REMOVE OLD NICOTINE PATCH T-DERMAL SCH (21:00)
[2017-09-25] MEDS: diphenhydrAMINE HCL 50 MG CAP - HS PRN PO (22:10)
[2017-09-26 05:59] VITALS: BP 99/57; PULSE 79; RESP 16; TEMP 98; O2SAT 100
[2017-09-26] MEDS: QUEtiapine FUMARATE 100 MG TAB PO SCH ×3 (08:54→16:00)
[2017-09-26] MEDS: LITHIUM CARBONATE 300 MG CAP PO SCH ×2 (08:55→20:35)
[2017-09-26] MEDS: FOLIC ACID 1 MG TAB PO SCH (08:55)
[2017-09-26] MEDS: THIAMINE HCL 100 MG TAB PO SCH (08:55)
[2017-09-26] MEDS: hydrOXYzine HCL 50 MG TAB PO PRN (11:55)
--- NOTE | 2017-09-26 12:45 | HHI.PYPN ---
Subjective Chief Complaint: Depression, suicide attempt Remarks Pt seen and discussed with staff. He has been quiet and isolative to room with limited interactions. He denies SI but reports having "bad thoughts". No HI. No aggression or agitation. Mental Status Examination Appearance: Appropriate Consciousness: Alert Orientation: x4 Motor Activity: Normal gait, Other (no motoric abnormalities noted) Speech: Unremarkable Language: Adequate Fund of Knowledge: Adequate Attention and Concentration: Adequate Memory: Unremarkable Mood: Other (depressed) Affect: Other (more full and reactive today) Thought Process & Associations: Intact, Logical, Linear Thought Content: Appropriate Hallucination Type: None Delusion Type: None Suicidal Ideation: No Suicidal Plan: No Suicidal Intention: No Homicidal Ideation: No (denies HI but reports some violent thoughts towards ex- 's boyfriend.) Homicidal Plan: No Homicidal Intention: No Insight: Fair Judgment: Impulsive Results Vitals/IOs Vital Signs Date Time Temp Pulse Resp B/P (MAP) Pulse Ox O2 Delivery O2 Flow Rate FiO2 09/26/17 05:59 98.0 79 16 99/57 (71) 100 Assessment & Plan Problem List: (1) Severe depressed bipolar II disorder without psychotic features ICD Codes: F31.81 - Bipolar II disorder (2) Polysubstance abuse ICD Codes: F19.10 - Other psychoactive substance abuse, uncomplicated Assessment & Plan Continue current tx plan. Estimated LOS: days Justification for Cont. Inpt. risk of decompensation Request HC Surrog/Guard Advoc?: No Gena Ramirez MD Sep 26, 2017 12:45
[2017-09-26 17:14] VITALS: BP 107/64; PULSE 86; RESP 16; TEMP 98.4; O2SAT 99
[2017-09-26] MEDS: QUEtiapine FUMARATE 200 MG TAB PO SCH (20:34)
[2017-09-26] MEDS: QUEtiapine FUMARATE 300 MG TAB PO SCH (20:34)
[2017-09-26] MEDS: REMOVE OLD NICOTINE PATCH T-DERMAL SCH (20:35)
[2017-09-26] MEDS: diphenhydrAMINE HCL 50 MG CAP - HS PRN PO (22:00)
[2017-09-27] MEDS: FOLIC ACID 1 MG TAB PO SCH (08:29)
[2017-09-27] MEDS: THIAMINE HCL 100 MG TAB PO SCH (08:29)
[2017-09-27] MEDS: LITHIUM CARBONATE 300 MG CAP PO SCH ×2 (08:29→21:28)
[2017-09-27] MEDS: QUEtiapine FUMARATE 100 MG TAB PO SCH ×3 (08:31→16:23)
[2017-09-27] MEDS: NICOTINE 21 MG/24 HR PATCH T-DERMAL PRN (08:32)
--- NOTE | 2017-09-27 11:08 | HHI.PYPN ---
Subjective Chief Complaint: Depression, suicide attempt Remarks Pt seen and discussed with staff. He has been quiet and calm today. He reports depressed mood but denies SI/HI. He is cooperative and compliant with treatment. No agitation or aggression. No medication side effects. He has been participating more in milieu. Mental Status Examination Appearance: Appropriate Consciousness: Alert Orientation: x4 Motor Activity: Normal gait, Other (no motoric abnormalities noted) Speech: Unremarkable Language: Adequate Fund of Knowledge: Adequate Attention and Concentration: Adequate Memory: Unremarkable Mood: Other (depressed) Affect: Other (more full and reactive today) Thought Process & Associations: Intact, Logical, Linear Thought Content: Appropriate Hallucination Type: None Delusion Type: None Suicidal Ideation: No Suicidal Plan: No Suicidal Intention: No Homicidal Ideation: No Homicidal Plan: No Homicidal Intention: No Insight: Fair Judgment: Impulsive Results Vitals/IOs Vital Signs Date Time Temp Pulse Resp B/P (MAP) Pulse Ox O2 Delivery O2 Flow Rate FiO2 09/26/17 17:14 98.4 86 16 107/64 (78) 99 Assessment & Plan Problem List: (1) Severe depressed bipolar II disorder without psychotic features ICD Codes: F31.81 - Bipolar II disorder (2) Polysubstance abuse ICD Codes: F19.10 - Other psychoactive substance abuse, uncomplicated Assessment & Plan Continue current tx plan Estimated LOS: days Justification for Cont. Inpt. risk of decompensation Request HC Surrog/Guard Advoc?: Gena Olivo MD Sep 27, 2017 11:08
[2017-09-27] MEDS: hydrOXYzine HCL 50 MG TAB PO PRN (14:49)
[2017-09-27 17:51] VITALS: BP 119/65; PULSE 76; RESP 16; TEMP 97.8; O2SAT 99
[2017-09-27] MEDS: REMOVE OLD NICOTINE PATCH T-DERMAL SCH (21:00)
[2017-09-27] MEDS: QUEtiapine FUMARATE 300 MG TAB PO SCH (21:28)
[2017-09-27] MEDS: QUEtiapine FUMARATE 200 MG TAB PO SCH (21:28)
[2017-09-27] MEDS: diphenhydrAMINE HCL 50 MG CAP - HS PRN PO (22:28)
[2017-09-28 06:15] VITALS: BP 107/64; PULSE 85; RESP 17; TEMP 97.6; O2SAT 98
[2017-09-28] MEDS: THIAMINE HCL 100 MG TAB PO SCH (08:20)
[2017-09-28] MEDS: LITHIUM CARBONATE 300 MG CAP PO SCH (08:20)
[2017-09-28] MEDS: FOLIC ACID 1 MG TAB PO SCH (08:21)
[2017-09-28] MEDS: QUEtiapine FUMARATE 100 MG TAB PO SCH ×3 (08:22→16:00)
[2017-09-28] MEDS: hydrOXYzine HCL 50 MG TAB PO PRN (10:16)
[2017-09-28] MEDS ORDERED: FOLI1TAB6 PO (13:09)
[2017-09-28] MEDS ORDERED: THIA100 PO (13:09)
[2017-09-28] MEDS ORDERED: QUET1TAB8 PO (13:09)
[2017-09-28] MEDS ORDERED: QUET1TAB9 PO (13:09)
[2017-09-28] MEDS ORDERED: QUET1TAB10 PO (13:09)
[2017-09-28] MEDS ORDERED: LITH300C2 PO (13:09)
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
== END 2017-09-28 17:07 | disposition home or self-care (01) | DRG 885 ==
LOC: H270 01:25 → H260 13:40 → H270 09-21 14:30
PROVIDERS: ADMIT Psychiatry & Neurology Psychiatry; ATTEND Psychiatry & Neurology Psychiatry
DX: F31.81 Bipolar II disorder (principal); R45.851 Suicidal ideations; F19.10 Other psychoactive substance abuse, uncomplicated; W22.01XA Walked into wall, initial encounter; F41.9 Anxiety disorder, unspecified; G47.00 Insomnia, unspecified; F17.210 Nicotine dependence, cigarettes, uncomplicated; S60.221A Contusion of right hand, initial encounter; R25.1 Tremor, unspecified; Z81.8 Family history of other mental and behavioral disorders; Z76.5 Malingerer [conscious simulation]; Z91.5 Personal history of self-harm
CPT/HCPCS: 73120; 73130; 80048; 80061; 80178; 83036; 84443; Q0163

== ENCOUNTER 2017-09-30 15:00 | Inpatient (IN) | payer OTHER ==
[2017-09-30 20:44] LABS: ALBUMIN 4.1 GM/DL (3.4-5.0); ANION GAP 3 MEQ/L (5-15); AST (GOT) 24 U/L (15-37); BICARBONATE 29.6 MEQ/L (21.0-32.0); BLOOD UREA NITROGEN 10 MG/DL (7-18); CALCIUM 9.6 MG/DL (8.5-10.1); CHLORIDE 104 MEQ/L (98-107); CREATININE 1.09 MG/DL (0.60-1.30); GLOMERULAR FILTRATION RATE 76 ML/MIN (>89); GLUCOSE,RANDOM 99 MG/DL (74-106); POTASSIUM 3.8 MEQ/L (3.5-5.1); SODIUM (NA) 137 MEQ/L (136-145)
[2017-09-30 20:46] LABS: ALCOHOL LESS THAN 3 MG/DL (0-5)
[2017-09-30 20:48] LABS: ALKALINE PHOSPHATASE 72 U/L (45-117); ALT (GPT) 30 U/L (12-78); TOTAL BILIRUBIN ADULT 0.4 MG/DL (0.2-1.0); TOTAL PROTEIN 7.8 GM/DL (6.4-8.2)
[2017-09-30 21:05] LABS: AMPHETAMINE, URINE NEG (NEG); BARBITURATES, URINE NEG (NEG); BENZODIAZEPINE,URINE NEG (NEG); CANNABINOIDS, URINE NEG (NEG); COCAINE, URINE NEG (NEG)
[2017-09-30] MEDS ORDERED: ALUMINUM/MAGNESIUM/SIMETH 30 ML CUP PO (22:45)
[2017-09-30] MEDS ORDERED: MAGNESIUM HYDROXIDE SUSP 30 ML CUP PO (22:45)
[2017-09-30] MEDS ORDERED: ACETAMINOPHEN 325 MG TAB PO (22:45)
[2017-10-01] MEDS: NICOTINE 21 MG/24 HR PATCH T-DERMAL (09:00)
[2017-10-01] MEDS: QUEtiapine FUMARATE 100 MG TAB PO ×3 (09:34→16:36)
[2017-10-01] MEDS: FOLIC ACID 1 MG TAB PO (09:34)
[2017-10-01] MEDS: THIAMINE HCL 100 MG TAB PO (09:34)
[2017-10-01] MEDS: FLUoxetine HCL 20 MG CAP PO (16:36)
[2017-10-01] MEDS ORDERED: QUEtiapine FUMARATE 200 MG TAB PO (21:00)
[2017-10-01] MEDS: REMOVE OLD NICOTINE PATCH T-DERMAL (21:00)
[2017-10-01] MEDS ORDERED: QUEtiapine FUMARATE 300 MG TAB PO (21:00)
[2017-10-01] MEDS: QUEtiapine FUMARATE 200 MG TAB PO (21:14)
[2017-10-01] MEDS: OLANZapine 5 MG TAB PO (21:14)
[2017-10-01] MEDS: hydrOXYzine HCL 50 MG TAB PO (21:30)
[2017-10-02] MEDS: FOLIC ACID 1 MG TAB PO (08:40)
[2017-10-02] MEDS: QUEtiapine FUMARATE 100 MG TAB PO ×4 (08:40→21:00)
[2017-10-02] MEDS: NICOTINE 21 MG/24 HR PATCH T-DERMAL (08:40)
[2017-10-02] MEDS: THIAMINE HCL 100 MG TAB PO (08:40)
[2017-10-02] MEDS: FLUoxetine HCL 20 MG CAP PO (08:40)
[2017-10-02] MEDS: hydrOXYzine HCL 50 MG TAB PO (19:48)
[2017-10-02] MEDS: traZODone HCL 50 MG TAB PO (21:00)
[2017-10-02] MEDS: REMOVE OLD NICOTINE PATCH T-DERMAL (21:00)
[2017-10-02] MEDS: OLANZapine 5 MG TAB PO (21:31)
[2017-10-03] MEDS: FOLIC ACID 1 MG TAB PO (09:41)
[2017-10-03] MEDS: FLUoxetine HCL 20 MG CAP PO (09:42)
[2017-10-03] MEDS: QUEtiapine FUMARATE 100 MG TAB PO ×3 (09:42→21:06)
[2017-10-03] MEDS: THIAMINE HCL 100 MG TAB PO (09:42)
[2017-10-03] MEDS: NICOTINE 21 MG/24 HR PATCH T-DERMAL (09:42)
[2017-10-03] MEDS: hydrOXYzine HCL 50 MG TAB PO (12:40)
[2017-10-03] MEDS: REMOVE OLD NICOTINE PATCH T-DERMAL (21:00)
[2017-10-03] MEDS: traZODone HCL 50 MG TAB PO (21:06)
[2017-10-03] MEDS: OLANZapine 5 MG TAB PO (21:07)
[2017-10-04] MEDS: FLUoxetine HCL 20 MG CAP PO (08:49)
[2017-10-04] MEDS: QUEtiapine FUMARATE 100 MG TAB PO ×3 (08:49→20:11)
[2017-10-04] MEDS: THIAMINE HCL 100 MG TAB PO (08:49)
[2017-10-04] MEDS: NICOTINE 21 MG/24 HR PATCH T-DERMAL (08:49)
[2017-10-04] MEDS: FOLIC ACID 1 MG TAB PO (08:49)
[2017-10-04] MEDS: hydrOXYzine HCL 50 MG TAB PO ×2 (10:18→15:35)
[2017-10-04] MEDS: REMOVE OLD NICOTINE PATCH T-DERMAL (20:11)
[2017-10-04] MEDS: traZODone HCL 50 MG TAB PO (20:11)
[2017-10-04] MEDS: OLANZapine 5 MG TAB PO (20:11)
[2017-10-05] MEDS: FLUoxetine HCL 20 MG CAP PO (08:44)
[2017-10-05] MEDS: NICOTINE 21 MG/24 HR PATCH T-DERMAL (08:44)
[2017-10-05] MEDS: FOLIC ACID 1 MG TAB PO (08:44)
[2017-10-05] MEDS: THIAMINE HCL 100 MG TAB PO (08:44)
[2017-10-05] MEDS: QUEtiapine FUMARATE 100 MG TAB PO ×2 (08:46→21:07)
[2017-10-05] MEDS: hydrOXYzine HCL 50 MG TAB PO (18:09)
[2017-10-05] MEDS: REMOVE OLD NICOTINE PATCH T-DERMAL (21:00)
[2017-10-05] MEDS: OLANZapine 5 MG TAB PO (21:07)
[2017-10-05] MEDS: traZODone HCL 50 MG TAB PO (21:08)
[2017-10-06] MEDS: QUEtiapine FUMARATE 100 MG TAB PO (10:21)
[2017-10-06] MEDS: FLUoxetine HCL 20 MG CAP PO (10:21)
[2017-10-06] MEDS: FOLIC ACID 1 MG TAB PO (10:21)
[2017-10-06] MEDS: THIAMINE HCL 100 MG TAB PO (10:22)
[2017-10-06] MEDS: NICOTINE 21 MG/24 HR PATCH T-DERMAL (10:23)
[2017-10-06] MEDS: hydrOXYzine HCL 50 MG TAB PO (18:04)
[2017-10-06] MEDS: traZODone HCL 50 MG TAB PO (20:32)
[2017-10-06] MEDS: REMOVE OLD NICOTINE PATCH T-DERMAL (20:33)
[2017-10-06] MEDS: OLANZapine 10 MG TAB PO (20:36)
[2017-10-07] MEDS: NICOTINE 21 MG/24 HR PATCH T-DERMAL (08:53)
[2017-10-07] MEDS: THIAMINE HCL 100 MG TAB PO (08:53)
[2017-10-07] MEDS: QUEtiapine FUMARATE 100 MG TAB PO (08:53)
[2017-10-07] MEDS: FOLIC ACID 1 MG TAB PO (08:53)
[2017-10-07] MEDS: FLUoxetine HCL 20 MG CAP PO (08:53)
[2017-10-07] MEDS: hydrOXYzine HCL 50 MG TAB PO (13:49)
== END 2017-10-07 16:15 | disposition short-term general hospital (02) | DRG 885 ==
LOC: NEPJ 15:00 → NEDA 23:06 → H260 23:40
DX: F31.81 Bipolar II disorder (principal); F17.210 Nicotine dependence, cigarettes, uncomplicated; F19.10 Other psychoactive substance abuse, uncomplicated; Z81.8 Family history of other mental and behavioral disorders
CPT/HCPCS: 80053; 80178; 80307; 93005; 97166-GO; 99285-25